=== PATIENT | male | born 1945 | race Caucasian/White ===

== ENCOUNTER → 2022-01-22 | Outpatient (CLI) | payer MEDICARE ==
--- NOTE | 2022-01-23 09:08 | KCIC ---
Two-view wrist HISTORY: Pain Limited 2 view AP lateral views There is moderate degenerative changes of the first carpometacarpal joint with marginal spurring. The re is no lytic destructive changes. IMPRESSION: No acute findings. Electronically signed by: Vlad Recinos III, MD (01/23/2022 9:05 AM) [facility]
--- NOTE | 2022-01-23 09:08 | KCIC ---
Two-view wrist HISTORY: Pain Limited 2 view AP lateral views There is moderate degenerative changes of the first carpometacarpal joint with marginal spurring. The re is no lytic destructive changes. IMPRESSION: No acute findings. Electronically signed by: Vlad Recinos III, MD (01/23/2022 9:05 AM) [facility]
== END ==
LOC: KCIC 15:16
PROVIDERS: ATTEND Internal Medicine
DX: M19.042 Primary osteoarthritis, left hand (principal)
CPT/HCPCS: 73100; 73120